=== PATIENT | female | born 1950 | race Caucasian/White ===

== ENCOUNTER 2016-08-15 09:43 | Day surgery (SDC) | payer MEDICARE, OTHER ==
[2016-08-10 11:14] LABS: BASOPHILS 0.2 %; BASOPHILS ABSOLUTE 0.01 10/3/uL (0.0-0.16); EOSINOPHILS 1.3 %; EOSINOPHILS ABSOLUTE 0.06 10/3/uL (0.0-0.53); IMMATURE GRANULOCYTES 0.4 %; IMMATURE GRANULOCYTES ABSOLUTE 0.02 10/3/uL (0.0-0.11); LYMPHOCYTES 33.9 %; LYMPHOCYTES ABSOLUTE 1.57 10/3/uL (0.67-4.30); MEAN CORPUS HGB CONC 33.7 g/dL (32.0-36.0); MEAN CORPUSCULAR HEMOGLOB 28.4 pg (26.0-34.0); MEAN CORPUSCULAR VOLUME 84.1 fL (80-100); MEAN PLATELET VOLUME 11.1 fL (9.2-13.0); MONOCYTES ABSOLUTE 0.37 10/3/uL (0.21-1.20); NEUTROPHILS 56.2 %; PLATELET COUNT 224 10/3/uL (150-400); RBC DISTRIBUTION WIDTH 13.3 % (12.0-16.0); RED CELL COUNT 5.29 10/6/uL (4.0-5.6); WHITE BLOOD CELLS 4.6 10/3/uL (4.5-10.5)
[2016-08-10 11:16] LABS: HEMATOCRIT 44.5 % (36.0-48.0); MANUAL DIFF NO %
[2016-08-10 11:28] LABS: A/G RATIO 1.4 (0.7-1.9); ALBUMIN 3.8 G/DL (3.5-5.0); CHLORIDE, SERUM 110 MMOL/L (96-112); CREATININE 1.32 MG/DL (0.55-1.02); GFR AFRICAN AMERICAN 49 ML/MIN (>=60); GFR NON AFRICAN AMERICAN 42 ML/MIN (>=60); GLOBULIN 2.8 G/DL (2.5-4.1); SGOT(AST) 17 U/L (5-40); SGPT(ALT) 32 U/L (5-65); SODIUM, SERUM 144 MMOL/L (135-148); TOTAL BILIRUBIN 0.8 MG/DL (0-1.2); TOTAL PROTEIN 6.6 G/DL (6.0-8.5)
[2016-08-10 11:29] LABS: ALKALINE PHOSPHATASE 82 U/L (45-117); BUN (BLOOD UREA NITROGEN) 17 MG/DL (6-23); CO2 (CARBON DIOXIDE) 31 MMOL/L (24-34); GLUCOSE, SERUM 99 MG/DL (60-99)
--- NOTE | ~2016-08-15 | OP ---
Record Of Operation [facility] [address] [place]. [address] NAME: LESLY MCCOY : 52 STATUS : [facility]#: [id number] AGE: 66 ADM/REG DATE : 08/15/16 MR#: [id number] REPORT SERV DATE: 08/15/16 DICTATED BY: ERICK BATISTA DATE: 08/15/16 REPORT STATUS : Draft TRANSCRIBED BY: MODL DATE: 08/15/16 DATE OF PROCEDURE: 08/15/2016 SURGEON: Erick Batista M.D. ANESTHESIA: General endotracheal and local. PREOPERATIVE DIAGNOSIS: Left breast cancer. POSTOPERATIVE DIAGNOSIS: Left breast cancer. PROCEDURES: 1. Injection of blue dye, left breast. 2. Ultrasound localization, left breast cancer. 3. Left breast lumpectomy. 4. Left axillary sentinel node biopsy x3. HISTORY: The patient is a 66-year-old female, noted to have the interval appearance of a small mass lesion in the left lateral breast compared to prior years mammograms. She underwent ultrasound-guided core biopsy on 08/01/2016 which showed invasive pleomorphic lobular cancer, grade 3. This was ER/MO positive and HER-2/izabella negative with a markedly elevated Ki67 at 40% to 50%. She had no evidence of left axillary adenopathy. The patient has been counseled regarding her treatment options and desires to proceed with breast conserving surgery. She comes in for this purpose today. The patient's clinical preoperative stage is T1 N0 M0. NARRATIVE SUMMARY: Earlier in the day, the patient was taken to the Nuclear Medicine Department where she underwent injection of technetium-99m sulfur colloid to the skin of the left breast. Subsequent imaging illuminated a sentinel node in the low axilla. The patient was brought to surgery and given a balanced general anesthetic. After appropriate skin prep, a 1:4 dilution of methylene blue dye was injected in the left subareolar space with a total of 4 mL injected. The breast was massaged for several minutes. Ultrasound scanning was then performed of the left lateral breast. At the 3 o'clock position, 6 cm from the nipple was readily identified an oval lesion deep within the breast and measuring approximately 1 cm diameter. This correlated in location and size to the lesion recently biopsied and the area was photographed. The overlying skin was marked in two perpendicular planes based on ultrasound probe placement. The left arm was then placed out on armboard and the left breast and axillary areas prepped and draped in the usual fashion. Record Of Operation [facility] [address] [place]. [address] NAME: LESLY MCCOY : 52 STATUS : [facility] PAT#: [id number] AGE: 66 ADM/REG DATE : 08/15/16 MR#: [id number] REPORT SERV DATE: 08/15/16 DICTATED BY: ERICK BATISTA DATE: 08/15/16 REPORT STATUS : Draft TRANSCRIBED BY: SUKUMAR DATE: 08/15/16 0.5% Marcaine was used to infiltrate the skin and subcutaneous tissue of the periareolar area and the left lateral breast. A periareolar incision was made at the lateral aspect of the areola. Skin and subcutaneous flaps were raised laterally using sharp dissection well beyond the skin markings indicating the location of the tumor as well as extensively superior and inferior to that site. This allowed complete mobilization of the skin flaps of the lateral breast. A column of tissue corresponding to the overlying skin marking was then sharply excised. The specimen was marked for orientation purposes and appeared to contain a small palpable mass. This was handed off fresh to the pathologist. Further digital exploration of the resected cavity revealed a second tiny nodule, which was at the more medial aspect of the resection specimen. It was not certain whether this represented transection of the tumor or an additional focus of tumor, but it was resected and likewise marked for orientation purposes with two sutures placed and handed off fresh to the pathologist as a second re- excision specimen. The both specimens were inked and serially sectioned by the pathologist. The first specimen appeared to contain the majority of the tumor, although the tumor approached one edge of the specimen. This was felt likely contiguous with the smaller lesion present within the second specimen. The only final margin felt to be close was the lateral inferior margin. An additional segment of tissue was sharply resected from the lateral and inferior margin within the biopsy cavity and was sent as a separate specimen for permanent section only labeled re-excision lateral inferior margin with a suture placed on the new margin. The lumpectomy site was packed open and attention was turned to the axilla. Low-transverse axillary incision was made and subcutaneous tissue was divided after infiltration with 0.5% Marcaine. The axillary fat pad was entered. The Gamma probe was used to localize a hot spot and this led to discovery of a partially blue-stained node. This was removed from surrounding tissue, performing all dissection in the axilla using the Harmonic Scalpel. The first node had an ex vivo 10-second count of 30,239, and was labeled sentinel node #1. A second node in a slightly posterior position was also removed. This was not blue-stained and had an ex vivo 10-second count of 1496. This was labeled sentinel node #2. A third moderately hot spot was located superiorly. This led to discovery of a fairly large palpable node, although it appeared to be mostly fatty replaced. This was removed from surrounding tissue with an ex vivo 10-second count noted of 624. This was labeled sentinel node #3. There was no significant residual background count remaining within the axilla, and there was no residual palpable adenopathy or visible blue dye. All three nodes were sent separately for permanent pathologic examination. No further treatment of the axilla was felt indicated. Both the axillary and breast wounds were thoroughly irrigated and aspirated free of fluid. Bleeding at the lumpectomy site was controlled using cautery. Both areas were further infiltrated with 0.5% Marcaine. The axilla was closed in layers using 3-0 Vicryl interrupted subcutaneous suture and 4-0 Monocryl running subcuticular closure for skin. The left lateral breast tissue was able to readily be approximated, obliterating completely Record Of Operation [address] [address] NAME: LESLY MCCOY : 52 STATUS : [facility] PAT#: [id number] AGE: 66 ADM/REG DATE : 08/15/16 MR#: [id number] REPORT SERV DATE: 08/15/16 DICTATED BY: ERICK BATISTA DATE: 08/15/16 REPORT STATUS : Draft TRANSCRIBED BY: SUKUMAR DATE: 08/15/16 the lumpectomy cavity. Breast tissue was mostly fatty in character, and therefore, no posterior dissection was accomplished. The excision site extended down to and included pectoralis fascia. Intervening layers were loosely reapproximated with 3-0 Vicryl sutures. Skin edges at the areola were then closed using 3-0 Vicryl interrupted subcutaneous suture and 4-0 Monocryl running subcuticular closure for skin. Steri-Strips and dressings were applied, and the patient was awakened and transported to the recovery area in stable condition. Estimated blood loss was 100 mL. Sponge, instrument, and needle counts were correct. There were no complications noted. Prior to initiation of the incision, appropriate time-out was called to identify the patient, verify appropriate administration of antibiotics, review allergies, verify the appropriate procedure as left breast lumpectomy and sentinel node biopsy. TANNER/SUKUMAR Erick Batista M.D. / [id number] CC: Kana Lawrence M.D.
[~2016-08-15 09:43] MED LIST: A & D OINTMENT TOP; ACET500CAP PO; ALEVE220 MG PO; BIOTIN10 MG PO; CALTRA600D PO; CLOBETASOL E0.05 % EX; CLOBETASOL0.051 EX; CLOBETASOL0.053 EX; MULTIPLE VIT PO; OS500+D PO; SYN.025B PO; SYN.15 PO; TEMOVATE CREAM30 GM TOP; VITAMIN B-121000 MC1 SL; VITAMIN B-122500 MCG SL; VITAMIN D31000 UNIT PO; VITAMIN D400 UNI1 PO; VITE PO; [UNRECOGNIZED DRUG - REMARK] TOP
== END 2016-08-15 18:13 | disposition home or self-care (01) ==
LOC: SDC 09:43
PROVIDERS: Surgery
PROC: 07B60ZX Excision of Left Axillary Lymphatic, Open Approach, Diagnostic (ICD-10-PCS; 2016-08-15)
PROC: C71L1ZZ Planar Nuclear Medicine Imaging of Upper Chest Lymphatics using Technetium 99m (Tc-99m) (ICD-10-PCS; 2016-08-15)
PROC: 0HBU0ZZ Excision of Left Breast, Open Approach (ICD-10-PCS; principal; 2016-08-15 13:15)
DX: C50.912 Malignant neoplasm of unspecified site of left female breast (principal); C77.3 Secondary and unspecified malignant neoplasm of axilla and upper limb lymph nodes; E89.0 Postprocedural hypothyroidism; M19.90 Unspecified osteoarthritis, unspecified site; L90.0 Lichen sclerosus et atrophicus; L80 Vitiligo; H26.9 Unspecified cataract; Z88.0 Allergy status to penicillin; Z88.8 Allergy status to other drugs, medicaments and biological substances; Z91.040 Latex allergy status; Z79.52 Long term (current) use of systemic steroids; Z79.899 Other long term (current) drug therapy; Z98.42 Cataract extraction status, left eye; Z96.1 Presence of intraocular lens; Z96.653 Presence of artificial knee joint, bilateral; Z98.890 Other specified postprocedural states
CPT/HCPCS: 71020; 78195; 80053; 85025; 88305; 88307; 88342; 93005; A9270-GY; A9541; J0330; J0690; J1885; J2250; J2405; J3010

== ENCOUNTER 2016-09-02 06:50 | Day surgery (SDC) | payer MEDICARE, OTHER ==
[2016-08-30 13:29] LABS: BASOPHILS 0.2 %; BASOPHILS ABSOLUTE 0.01 10/3/uL (0.0-0.16); EOSINOPHILS 1.2 %; EOSINOPHILS ABSOLUTE 0.06 10/3/uL (0.0-0.53); HEMATOCRIT 42.6 % (36.0-48.0); HEMOGLOBIN 14.1 g/dL (12.0-16.0); IMMATURE GRANULOCYTES 0.2 %; IMMATURE GRANULOCYTES ABSOLUTE 0.01 10/3/uL (0.0-0.11); LYMPHOCYTES 22.5 %; LYMPHOCYTES ABSOLUTE 1.13 10/3/uL (0.67-4.30); MEAN CORPUS HGB CONC 33.1 g/dL (32.0-36.0); MEAN CORPUSCULAR HEMOGLOB 27.9 pg (26.0-34.0); MEAN CORPUSCULAR VOLUME 84.4 fL (80-100); MEAN PLATELET VOLUME 10.9 fL (9.2-13.0); MONOCYTES 6.8 %; MONOCYTES ABSOLUTE 0.34 10/3/uL (0.21-1.20); NEUTROPHILS 69.1 %; NEUTROPHILS ABSOLUTE 3.47 10/3/uL (2.02-8.40); PLATELET COUNT 223 10/3/uL (150-400); RBC DISTRIBUTION WIDTH 13.3 % (12.0-16.0); RED CELL COUNT 5.05 10/6/uL (4.0-5.6)
[2016-08-30 13:41] LABS: MANUAL DIFF NO %
[2016-08-30 13:44] LABS: CALCIUM, SERUM 9.5 MG/DL (8.5-10.4); CHLORIDE, SERUM 109 MMOL/L (96-112); CO2 (CARBON DIOXIDE) 28 MMOL/L (24-34); CREATININE 0.94 MG/DL (0.55-1.02); GFR AFRICAN AMERICAN 74 ML/MIN (>=60); GFR NON AFRICAN AMERICAN 64 ML/MIN (>=60); POTASSIUM, SERUM 4.2 MMOL/L (3.5-5.3); SODIUM, SERUM 143 MMOL/L (135-148)
[2016-08-30 13:45] LABS: BUN (BLOOD UREA NITROGEN) 11 MG/DL (6-23); GLUCOSE, SERUM 124 MG/DL (60-99)
--- NOTE | ~2016-09-02 | OP ---
Record Of Operation [facility] [address] [place]. 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 POSTOPERATIVE DIAGNOSIS: Left breast cancer and phlebosclerosis. PROCEDURE: Placement of right subclavian Port-A-Cath. ATTENDING SURGEON: Erick Batista M.D. RESIDENT: Chari Candelaria M.D. ANESTHESIA: LMA. SPECIMENS: None. ESTIMATED BLOOD LOSS: 5 mL. INDICATIONS FOR PROCEDURE: The patient is a 66-year-old female, diagnosed with left breast cancer, in need of chemotherapy as part of her treatment and so, risks, benefits, and alternatives of placement of Port-A-Cath for the purposes of administration of the chemotherapy were discussed with the patient who wished to proceed. DESCRIPTION OF PROCEDURE: After consent was obtained, the patient was brought to the operating room, placed on the operating table in the supine position. Satisfactory anesthesia was induced with LMA. After which, the right chest and neck were prepped and draped in the usual sterile fashion. A time-out was completed. Local anesthetic was then injected in the skin and subcutaneous tissue of the chest and the mid infraclavicular location. The patient in Trendelenburg position, the right subclavian vein was cannulated using an introducer needle. A guidewire was passed without difficulty and the needle was removed. Fluoroscopy confirmed satisfactory position of the guidewire in the right atrium. A dilator and sheath were passed over the guidewire after a small skin incision was made at the location of the guidewire. The guidewire and dilator were removed and the catheter was inserted through the sheath and the sheath was carefully withdrawn just inferior to the location of the catheter exit site from the skin. A transverse incision was made and a subcutaneous pocket was created using a combination of electrocautery and blunt dissection for the port. A hemostat was used to dissect superiorly through subcutaneous tissue at the pocket site up to the location of the catheter exit site from the skin. The end of the catheter was grasped and pulled through this short subcutaneous tunnel out through the pocket. Fluoroscopy was then used to adjust the catheter to satisfactory position at the junction of the superior vena cava with the right atrium. The locking cap was placed on the catheter and the catheter was then cut to the appropriate length at approximately the 14 cm level. The port was then connected to the catheter and the locking cap was secured. The port was aspirated and flushed easily and then placed within the subcutaneous pocket. Fluoroscopy again confirmed satisfactory position. This port was then secured within the Record Of Operation [facility] [id number] [place]. [address] NAME: LESLY MCCOY : 52 STATUS : [facility] PAT#: [id number] AGE: 66 ADM/REG DATE : 09/02/16 MR#: [id number] REPORT SERV DATE: 09/05/16 DICTATED BY: ERICK BATISTA DATE: 09/04/16 REPORT STATUS : Draft TRANSCRIBED BY: SUKUMAR DATE: 09/04/16 pocket with a single Vicryl suture. Hemostasis was good. The subcutaneous tissues were reapproximated using simple interrupted Vicryl suture. The dermis was then closed using a running subcuticular Prolene suture. The small skin incision that had been made just superior to the pocket site for the port over the subclavian vein had been accessed was also closed using a single simple interrupted Prolene suture, both sites were dressed with Telfa and Tegaderm. The patient tolerated the procedure well and was taken to PACU in stable condition. DICTATED BY: MD ALLA Faith/SUKUMAR Erick Batista M.D. / [id number] CC: Kana Lawrence M.D.
== END 2016-09-02 12:02 | disposition home or self-care (01) ==
LOC: SDC 06:50
PROVIDERS: Surgery
PROC: 05H533Z Insertion of Infusion Device into Right Subclavian Vein, Percutaneous Approach (ICD-10-PCS; principal; 2016-09-02 08:15)
DX: C50.912 Malignant neoplasm of unspecified site of left female breast (principal); I10 Essential (primary) hypertension; E66.9 Obesity, unspecified; M19.90 Unspecified osteoarthritis, unspecified site; E89.0 Postprocedural hypothyroidism; I87.8 Other specified disorders of veins; Z68.37 Body mass index [BMI] 37.0-37.9, adult; Z88.0 Allergy status to penicillin; Z88.8 Allergy status to other drugs, medicaments and biological substances; Z98.890 Other specified postprocedural states
CPT/HCPCS: 71010; 76000; 77001; 80048; 85025; C1751; J0690; J2250; J2405; J3010